=== PATIENT | male | born 1950 | race Caucasian/White ===

== ENCOUNTER 2016-11-17 11:44 | Outpatient (CLI) | payer MEDICARE ==
[~2016-11-17 11:44] MED LIST: NACL ONE
--- NOTE | 2016-11-17 13:21 | Ultrasound Report ---
ULTRASOUND RENAL INDICATION: Renal mass. COMPARISON: 04/15/2016 ultrasound and April 2015 MRI. FINDINGS: Renal sonography demonstrates normal renal cortical echogenicity. Grossly preserved contours. No hydronephrosis. Echogenic imaged liver. Right kidney measures 10.6 x 4.3 x 4.5 cm with cortical thickness of 1.3 cm. AP renal pelvis diameter of 8-9 mm may again represent a small extrarenal pelvis. Left kidney estimated at 10.6 x 5.3 x 4.8 cm with cortical thickness of 1.5 cm. Urinary bladder appears within normal limits. CONCLUSION: No acute renal sonographic abnormality, as described. Two small sub-centimeter left renal cysts seen on prior MRI not well-visualized sonographically. Thank you for the opportunity to participate in this patient's care.
== END 2016-11-17 11:45 | disposition home or self-care (01) ==
LOC: US 11:44
PROVIDERS: ATTEND Urology
DX: N20.0 Calculus of kidney (principal); N28.1 Cyst of kidney, acquired; N28.89 Other specified disorders of kidney and ureter
CPT/HCPCS: 76770

== ENCOUNTER 2017-05-25 15:49 | Outpatient (CLI) | payer MEDICARE ==
--- NOTE | 2017-05-25 16:44 | XRay Report ---
ROUTINE CHEST, TWO VIEWS: Chest pain, dizziness. PA and lateral views demonstrate the heart and mediastinal contour to be of normal size and shape. The lungs are clear and fully expanded and the soft tissues and bony structures are normal. No significant change compared to December 2014. IMPRESSION: Normal study.
== END 2017-05-25 15:50 | disposition home or self-care (01) ==
LOC: CARD 15:49
PROVIDERS: ATTEND Family Medicine
DX: R07.9 Chest pain, unspecified (principal); R42 Dizziness and giddiness
CPT/HCPCS: 71020; 93005; 93010

== ENCOUNTER 2017-11-17 19:46 | Emergency (ER) | payer MEDICARE ==
[2017-11-17 20:50] VITALS: BP 130/64
--- NOTE | 2017-11-18 00:28 | Emergency Department Report ---
ED Rash HPI - HPI Chief Complaint: Skin Rash Stated Complaint: RASH Time Seen by Provider: 11/18/17 00:10 Duration: 1 Day Location: Head, Upper Extremities, Lower Extremities Suspected Cause: Food Rash Symptoms: Yes Itching, No Facial Swelling, No Tongue/Oral Swelling, No Breathing Difficulties, No Choking Sensation, No Wheezing/Dyspnea, No Peeling, No Blistering, No Fever, No Lightheaded, No Malaise, No Myalgias Severity: moderate Other History: This is a 66-year-old male Presents with a generalized pruritic rash. Patient reports eating dinner last night from a rollover a chicken salad sandwich and felt fine initially but woke up with a terrible rash. Patient started using old complaining from a rash he had 2 months ago. Patient reports rash is intolerable and each is worse at night. He took one Claritin and half of Benadryl once with no improvement of symptoms. Denies difficulty swallowing, swelling, difficulty breathing, chest pain, shortness of breath, and tonsil swelling. ED Review of Systems ROS: Stated complaint: RASH Other details as noted in HPI Constitutional: denies: chills, fever Respiratory: denies: cough, shortness of breath, wheezing Cardiovascular: denies: chest pain, palpitations Gastrointestinal: denies: abdominal pain, nausea, vomiting, diarrhea Musculoskeletal: denies: back pain, joint swelling, arthralgia Skin: rash (pure reticulocyte rash to hay, bilateral upper extremity, bilateral lower extremity). denies: lesions Neurological: denies: headache, weakness, numbness, paresthesias Psychiatric: denies: anxiety, depression ED Past Medical Hx - Past Medical History Previous Medical History?: Yes Hx Diabetes: Yes Hx Kidney Stones: Yes Additional medical history: CAD - Surgical History Past Surgical History?: Yes Additional Surgical History: right arm and ear surgery. - Social History Smoking Status: Never Smoker Substance Use Type: None - Medications Home Medications: Home Medications Medication Instructions Recorded Confirmed Last Taken Type Meloxicam [Mobic] 7.5 mg PO QDAY 06/17/15 08/12/15 06/16/15 History Omeprazole [PriLOSEC] 40 mg PO QDAY 06/17/15 08/12/15 06/16/15 History Ondansetron [Zofran Odt] 4 mg PO QID PRN #20 tab.rapdis 06/17/15 08/12/15 Unknown Rx Tramadol HCl [traMADol ER 100 MG] 100 mg PO QDAY 06/17/15 08/12/15 06/16/15 History sitaGLIPtin [Januvia] 50 mg PO QDDIAB 06/17/15 08/12/15 06/16/15 History Atorvastatin Calcium [Lipitor] 40 mg PO QHS 08/12/15 08/13/15 Unknown History Diclofenac Sodium [Voltaren] 100 gm TP DAILY 08/12/15 08/12/15 Unknown History Finasteride [Proscar] 5 mg PO QDAY 08/12/15 08/13/15 Unknown History Glimepiride [Amaryl] 2 mg PO QAM 08/12/15 08/13/15 Unknown History Mirabegron [Myrbetriq] 50 mg PO QDAY 08/12/15 08/13/15 Unknown History Sitagliptin Phosphate [Januvia] 50 mg PO QDAY 08/12/15 08/13/15 Unknown History RX: AtorvaSTATin [Lipitor] 40 mg PO DAILY #31 tablet 08/13/15 Unknown Rx RX: Cipro/Dexameth 0.3/0.1% 4 drops OT BID #1 bottle 08/13/15 Unknown Rx [Ciprodex OTIC] RX: Glimepiride [Amaryl] 2 mg PO QAM #31 tablet 08/13/15 Unknown Rx RX: HYDROcodone/APAP 7.5-325 1 each PO Q8HR PRN #12 tablet 08/13/15 Unknown Rx [[place] 7.5-325 mg TAB] RX: Olopatadine HCl [Pataday 0.2%] 1 drop OP QDAY #1 bottle 08/13/15 Unknown Rx RX: Triamcinolone 0.5% [Kenalog 1 applic TP TID #60 mg 11/18/17 Unknown Rx 0.5% CREAM] hydrOXYzine PAMOATE [Vistaril] 25 mg PO Q6HR PRN #20 capsule 11/18/17 Unknown Rx Rash Exam - Exam General: Vital signs noted. No distress. Alert and acting appropriately. HEENT: No Periorbital Edema, No Conjuctival Injection, No Chemosis, No Perioral Edema, No Tongue Edema, No Uvular Edema, No Compromised Airway, No Drooling Lungs: Yes Good Air Exchange (Normal Breath Sounds), No Wheezes, No Ronchi, No Stridor, No Cough, No Labored Respirations, No Retractions, No Use of Accessory Muscles, No Other Abnormal Lung Sounds Heart: Yes Regular, No Murmur Skin: Yes Maculopapular Rash (multiple 1-2 cm maculopapular erythematous rash to occipital scalp, BUE, BLE), No Urticarial Rash, No Morbilliform rash, No Bulla(e), No Excoriations, No Weeping, No Tenderness, No Erythema, No Edema, No Encrustations, No Other Other: Positive: Abdomen Normal, Neurologic Normal, Musculoskeletal Normal ED Course Vital Signs 11/17/17 20:48 Temperature 98.1 F Pulse Rate 64 Respiratory 16 Rate Blood Pressure 130/64 O2 Sat by Pulse 95 Oximetry ED Medical Decision Making - Medical Decision Making This is a 66 y.o. male presents with a generalized rash. Patient was examined by me. Vitals are stable. Nontoxic appearance. Physical findings susceptible of allergic contact dermatitis. Given dexamethasone 8 mg IM, Vistaril 25 mg by mouth once in the ER. History of DM2. Informed glucose may elevate slightly from steroid injection. Requests to receive steroid injection. Start kenalog cream and visteril. Plan discussed with patient to discharge home and treat outpatient. He agrees with ER plan. Patient discharged home in stable condition. Follow up with PCP in 2-3 days. Critical care attestation.: If time is entered above; I have spent that time in minutes in the direct care of this critically ill patient, excluding procedure time. ED Disposition Clinical Impression: Allergic contact dermatitis Qualifiers: Contact dermatitis trigger: unspecified trigger Qualified Code(s): L23.9 - Allergic contact dermatitis, unspecified cause Disposition: DC-01 TO HOME OR SELFCARE Is pt being admited?: No Does the pt Need Aspirin: No Condition: Stable Instructions: Contact Dermatitis (ED) Additional Instructions: Apply a thin layer of triamcinolone cream to affected areas twice a day. Take Vistaril for itching. Follow-up with primary care provider in 2-3 days. Prescriptions: hydrOXYzine PAMOATE [Vistaril] 25 mg PO Q6HR PRN #20 capsule PRN Reason: Itching RX: Triamcinolone 0.5% [Kenalog 0.5% CREAM] 1 applic TP TID #60 mg Referrals: [facility] [Outside] - 3-5 Days [facility] [Outside] - 3-5 Days [facility] [Outside] - 3-5 Days Time of Disposition: 01:24 Print Language: TELUGU
[2017-11-18] MEDS ORDERED: VISTARIL PO ONE (00:29)
[2017-11-18] MEDS ORDERED: DECADRON IM ONE (00:29)
== END 2017-11-18 01:50 | disposition home or self-care (01) ==
LOC: ED 19:46
DX: L23.9 Allergic contact dermatitis, unspecified cause (principal); E11.9 Type 2 diabetes mellitus without complications; I25.10 Atherosclerotic heart disease of native coronary artery without angina pectoris; Z79.899 Other long term (current) drug therapy; Z88.1 Allergy status to other antibiotic agents; Z87.442 Personal history of urinary calculi
CPT/HCPCS: 96372; 99282; J1100; Q0177

== ENCOUNTER 2018-04-21 13:08 | Outpatient (CLI) | payer MEDICARE ==
[2018-04-21 14:13] LABS: Blood Urea Nitrogen 15 mg/dL (9-20)
--- NOTE | 2018-04-21 17:22 | Cat Scan Report ---
FINAL REPORT EXAM: CT ABDOMEN PELVIS WO/W CON HISTORY: OTHER MICROSCOPIC Hematuria, UROGRAM WITHOUT CONTRAST TECHNIQUE: Standard unenhanced followed by enhanced CT of the abdomen and pelvis. Coronal and sagittal reconstruction was also performed. Contrast: Intravenous contrast given PRIORS: None. FINDINGS: On the unenhanced exam, there is a 4 mm nonobstructing calculus in the proximal right ureter just beyond the ureteropelvic junction (axial image 73, series 2). On the enhanced images, contrast is noted beyond this calculus in the distal right ureter. There is no evidence for renal calculi. No evidence for left ureteral or bladder calculus is seen. No evidence for renal or bladder mass is noted. There is a 1 cm low-density cyst in the lateral mid pole left kidney. Kidney smaller adjacent cyst seen in the upper left pole. Following contrast, within the abdomen, the liver, spleen, pancreas, gallbladder, right adrenal gland, and kidneys are unremarkable. There is a 9 mm low-density nodule in the left adrenal gland, likely an adenoma. No evidence for retroperitoneal or pelvic lymphadenopathy is seen. The bowel loops have normal caliber. Moderate stool is present throughout the entire colon. No fluid collection, inflammatory change, or free air is seen within the abdomen or pelvis. The appendix is normal. Moderate calcification of the aorta is seen. Within the pelvis, the bladder is unremarkable. The prostate is mildly enlarged. No evidence for mass or lymphadenopathy is seen in the pelvis. Images through the upper abdomen include the lung bases which are expanded and clear. Bony structures show no focal abnormalities and are intact. IMPRESSION: 1. Nonobstructing calculus in the proximal right ureter. Excreted intravenous contrast is noted beyond this point in the distal right ureter 2. Multiple tiny hypodensities in left kidney, likely cysts. 3. Nodule in left adrenal gland, likely an adenoma 4. Mild prostate enlargement 5. Present throughout the colon.
== END 2018-04-21 13:09 | disposition home or self-care (01) ==
LOC: CT 13:08
PROVIDERS: ATTEND Urology
DX: N20.1 Calculus of ureter (principal); E27.9 Disorder of adrenal gland, unspecified; N40.0 Benign prostatic hyperplasia without lower urinary tract symptoms; J44.9 Chronic obstructive pulmonary disease, unspecified; E66.9 Obesity, unspecified; I10 Essential (primary) hypertension; Z87.891 Personal history of nicotine dependence
CPT/HCPCS: 36415; 74178; 82565; 84520; Q9967

== ENCOUNTER 2018-08-11 12:58 | Emergency (ER) | payer MEDICARE ==
[2018-08-11 13:09] VITALS: BP 101/67
--- NOTE | 2018-08-11 14:07 | Emergency Department Report ---
ED Rash HPI - HPI Chief Complaint: Skin Rash Stated Complaint: RASH ALL OVER Time Seen by Provider: 08/11/18 13:23 Duration: as per HPI Suspected Cause: Other (soap) Rash Symptoms: Yes Itching, No Facial Swelling, No Tongue/Oral Swelling, No Breathing Difficulties, No Choking Sensation, No Wheezing/Dyspnea, No Peeling, No Blistering, No Fever Severity: mild Other History: Mr. Baig is a 67 yo male with hx of diabetes, kidney stone, CAD, chronic pain, dysplipidemia, recurrent ear infections who presents with itchy dry skin and rash for 3 months. Had diffuse redness all over which improved with "shot" given in ED on previous ED visit. PCP diagnosed patient with Xerosis due to soap. Prednisone helps but causes his sugar level to shoot up. Mr. Baig desires antibiotic for left ear pain, namely ciprofloxacin. He has had 2 ear surgeries which has complicated chronic ear infections. ED Review of Systems ROS: Stated complaint: RASH ALL OVER Other details as noted in HPI Comment: All other systems reviewed and negative Constitutional: denies: fever, malaise Respiratory: denies: cough Gastrointestinal: denies: abdominal pain ED Past Medical Hx - Past Medical History Previous Medical History?: Yes Hx Diabetes: Yes Hx Kidney Stones: Yes Additional medical history: CAD. chronic pain. elevated cholestrol - Surgical History Past Surgical History?: Yes Additional Surgical History: right arm and ear surgery. - Social History Smoking Status: Never Smoker Substance Use Type: None - Medications Home Medications: Home Medications Medication Instructions Recorded Confirmed Last Taken Type Meloxicam [Mobic] 7.5 mg PO QDAY 06/17/15 08/12/15 06/16/15 History Omeprazole [PriLOSEC] 40 mg PO QDAY 06/17/15 08/12/15 06/16/15 History sitaGLIPtin [Januvia] 50 mg PO QDDIAB 06/17/15 08/12/15 06/16/15 History Atorvastatin Calcium [Lipitor] 40 mg PO QHS 08/12/15 08/13/15 Unknown History Diclofenac Sodium [Voltaren] 100 gm TP DAILY 08/12/15 08/12/15 Unknown History Finasteride [Proscar] 5 mg PO QDAY 08/12/15 08/13/15 Unknown History Glimepiride [Amaryl] 2 mg PO QAM 08/12/15 08/13/15 Unknown History Mirabegron [Myrbetriq] 50 mg PO QDAY 08/12/15 08/13/15 Unknown History Sitagliptin Phosphate [Januvia] 50 mg PO QDAY 08/12/15 08/13/15 Unknown History Glimepiride [Amaryl] 2 mg PO QAM #31 tablet 08/13/15 Unknown Rx Olopatadine HCl [Pataday 0.2%] 1 drop OP QDAY #1 bottle 08/13/15 Unknown Rx predniSONE [Deltasone] 20 mg PO DAILY #5 tablet 07/12/18 Unknown Rx Ciprofloxacin/Hydrocortisone 3 drop OT BID 7 Days #1 bottle 08/11/18 Unknown Rx [Ciprofloxacin HC OTIC] diphenhydrAMINE [Benadryl CAP] 25 mg PO Q6HR PRN #20 capsule 08/11/18 Unknown Rx Rash Exam - Exam General: Vital signs noted. No distress. Alert and acting appropriately. left ear: scarred TM HEENT: No Periorbital Edema, No Conjuctival Injection, No Chemosis, No Perioral Edema, No Tongue Edema, No Uvular Edema, No Compromised Airway, No Drooling Lungs: Yes Good Air Exchange (Normal Breath Sounds), No Wheezes, No Ronchi, No Stridor, No Cough, No Labored Respirations, No Retractions, No Use of Accessory Muscles, No Other Abnormal Lung Sounds Heart: Yes Regular, No Murmur Skin: No Other (dry skin no lesions) Other: Positive: Abdomen Normal, Neurologic Normal, Musculoskeletal Normal ED Course Vital Signs 08/11/18 13:05 Temperature 99.0 F Pulse Rate 80 Respiratory 16 Rate Blood Pressure 101/67 O2 Sat by Pulse 99 Oximetry ED Medical Decision Making - Medical Decision Making I agree with diagnosis of Xerosis. Has been treated with prednisone, loratadine, multiple topical medications per PCP. 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 left ear pain: ciprofloxacin otic drops prescribed according to his wishes rx: benadryl for itching Critical care attestation.: If time is entered above; I have spent that time in minutes in the direct care of this critically ill patient, excluding procedure time. ED Disposition Clinical Impression: Xerosis of skin, Earache on left Disposition: DC- TO HOME OR SELFCARE Is pt being admited?: No Does the pt Need Aspirin: No Condition: Stable Instructions: Earache (ED) Prescriptions: Ciprofloxacin/Hydrocortisone [Ciprofloxacin HC OTIC] 3 drop OT BID 7 Days #1 bottle diphenhydrAMINE [Benadryl CAP] 25 mg PO Q6HR PRN #20 capsule PRN Reason: Itching Referrals: PRIMARY CARE, [Referring] - 3-5 Days
[2018-08-11] MEDS ORDERED: BENADRYL IM ONE (14:15)
== END 2018-08-11 15:01 | disposition home or self-care (01) ==
LOC: ED 12:58
DX: L85.3 Xerosis cutis (principal); H92.01 Otalgia, right ear; E78.2 Mixed hyperlipidemia; N20.0 Calculus of kidney; E11.9 Type 2 diabetes mellitus without complications; G89.29 Other chronic pain; Z88.1 Allergy status to other antibiotic agents
CPT/HCPCS: 82962; 96372; 99283; J1200

== ENCOUNTER 2018-08-11 15:28 | Outpatient (CLI) | payer MEDICARE ==
--- NOTE | 2018-08-11 17:36 | XRay Report ---
FINAL REPORT EXAM: XR ABDOMEN 1V AP HISTORY: CALCULUS OF KIDNEY TECHNIQUE: KUB was performed Comparison: CT abdomen and pelvis 04/21/2018 demonstrating proximal right ureteral stone, nonobstruct kody FINDINGS: There is diffuse fecal retention, specially overlying the right abdomen. There are 2 right pelvic phleboliths and 2 additional pelvic brim phleboliths. No definite calculus is identified along the expected course of the right ureter. No renal calculi identified. IMPRESSION: Diffuse fecal retention. No definite renal or ureteral calculus.
== END 2018-08-11 15:29 | disposition home or self-care (01) ==
LOC: XRAY 15:28
PROVIDERS: ATTEND Urology
DX: K59.00 Constipation, unspecified (principal); I87.8 Other specified disorders of veins
CPT/HCPCS: 74018

== ENCOUNTER 2018-08-20 12:29 | Emergency (ER) | payer MEDICARE ==
[2018-08-20 12:56] VITALS: BP 109/70
[2018-08-20] MEDS ORDERED: SOLU-Medrol IM ONE (13:17)
[2018-08-20] MEDS ORDERED: BENADRYL IM ONE (13:17)
[2018-08-20 14:04] LABS: Bilirubin,Urine NEG (Negative); Blood,Urine NEG (Negative); Color,Urine Yellow (Yellow); Protein,Urine <15 mg/dL mg/dL (Negative); Urobilinogen,Urine < 2.0 mg/dL (<2.0); WBC,Urine < 1.0 /HPF (0.0-6.0)
--- NOTE | 2018-08-20 14:41 | Emergency Department Report ---
- General Chief complaint: Skin Rash Stated complaint: SWELLING Time Seen by Provider: 08/20/18 13:15 Source: patient Mode of arrival: Ambulatory Limitations: No Limitations - History of Present Illness Initial comments: 67-year-old male with a past medical history of kra-[id number] diabetes, kidney stones, chronic pain, and elevated cholesterol presents to the hospital once again complaining of a rash. Patient states he used a new [id number] hair dye for his mustache. He then developed swelling to his upper lip and his eyes since yesterday. Upon arrival symptoms have improved. Patient is also using a betamethasone and triamcinolone topical treatment for his ongoing chronic itching erythematous rash to scalp. He states that they help but causes sugar to be elevated to the 200s but states it comes down after taking his diabetes medication. Patient denies shortness of breath, wheezing, or tongue swelling. He is requesting a "strong medication" to help his symptoms. He also states he's had increased urinary frequency and like his urine checked. - Related Data Home Medications Medication Instructions Recorded Confirmed Last Taken Meloxicam [Mobic] 7.5 mg PO QDAY 06/17/15 08/12/15 06/16/15 Omeprazole [PriLOSEC] 40 mg PO QDAY 06/17/15 08/12/15 06/16/15 sitaGLIPtin [Januvia] 50 mg PO QDDIAB 06/17/15 08/12/15 06/16/15 Atorvastatin Calcium [Lipitor] 40 mg PO QHS 08/12/15 08/13/15 Unknown Diclofenac Sodium [Voltaren] 100 gm TP DAILY 08/12/15 08/12/15 Unknown Finasteride [Proscar] 5 mg PO QDAY 08/12/15 08/13/15 Unknown Glimepiride [Amaryl] 2 mg PO QAM 08/12/15 08/13/15 Unknown Mirabegron [Myrbetriq] 50 mg PO QDAY 08/12/15 08/13/15 Unknown Sitagliptin Phosphate [Januvia] 50 mg PO QDAY 08/12/15 08/13/15 Unknown Previous Rx's Medication Instructions Recorded Last Taken Type Glimepiride [Amaryl] 2 mg PO QAM #31 tablet 08/13/15 Unknown Rx Olopatadine HCl [Pataday 0.2%] 1 drop OP QDAY #1 bottle 08/13/15 Unknown Rx predniSONE [Deltasone] 20 mg PO DAILY #5 tablet 07/12/18 Unknown Rx Azithromycin 250 mg PO DAILY 5 Days #6 tablet 08/11/18 Unknown Rx Ciprofloxacin/Hydrocortisone 3 drop OT BID 7 Days #1 bottle 08/11/18 Unknown Rx [Ciprofloxacin HC OTIC] diphenhydrAMINE [Benadryl CAP] 25 mg PO Q6HR PRN #20 capsule 08/11/18 Unknown Rx predniSONE [Deltasone] 1 tab PO DAILY 5 Days #5 tab 08/11/18 Unknown Rx Prednisone [predniSONE 10 mg 10 mg PO .TAPER #1 tab.ds.pk 08/20/18 Unknown Rx (6-Day Pack, 21 Tabs)] diphenhydrAMINE [Benadryl CAP] 25 mg PO Q6HR PRN #20 capsule 08/20/18 Unknown Rx Allergies Allergy/AdvReac Type Severity Reaction Status Date / Time amoxicillin Allergy Unknown Verified 11/17/17 20:48 Abscess Boil HPI - HPI Chief Complaint: Skin Rash Stated Complaint: SWELLING Time Seen by Provider: 08/20/18 13:15 Home Medications: Home Medications Medication Instructions Recorded Confirmed Last Taken Meloxicam [Mobic] 7.5 mg PO QDAY 06/17/15 08/12/15 06/16/15 Omeprazole [PriLOSEC] 40 mg PO QDAY 06/17/15 08/12/15 06/16/15 sitaGLIPtin [Januvia] 50 mg PO QDDIAB 06/17/15 08/12/15 06/16/15 Atorvastatin Calcium [Lipitor] 40 mg PO QHS 08/12/15 08/13/15 Unknown Diclofenac Sodium [Voltaren] 100 gm TP DAILY 08/12/15 08/12/15 Unknown Finasteride [Proscar] 5 mg PO QDAY 08/12/15 08/13/15 Unknown Glimepiride [Amaryl] 2 mg PO QAM 08/12/15 08/13/15 Unknown Mirabegron [Myrbetriq] 50 mg PO QDAY 08/12/15 08/13/15 Unknown Sitagliptin Phosphate [Januvia] 50 mg PO QDAY 08/12/15 08/13/15 Unknown Previous Rx's Medication Instructions Recorded Last Taken Type Glimepiride [Amaryl] 2 mg PO QAM #31 tablet 08/13/15 Unknown Rx Olopatadine HCl [Pataday 0.2%] 1 drop OP QDAY #1 bottle 08/13/15 Unknown Rx predniSONE [Deltasone] 20 mg PO DAILY #5 tablet 07/12/18 Unknown Rx Azithromycin 250 mg PO DAILY 5 Days #6 tablet 08/11/18 Unknown Rx Ciprofloxacin/Hydrocortisone 3 drop OT BID 7 Days #1 bottle 08/11/18 Unknown Rx [Ciprofloxacin HC OTIC] diphenhydrAMINE [Benadryl CAP] 25 mg PO Q6HR PRN #20 capsule 08/11/18 Unknown Rx predniSONE [Deltasone] 1 tab PO DAILY 5 Days #5 tab 08/11/18 Unknown Rx Prednisone [predniSONE 10 mg 10 mg PO .TAPER #1 tab.ds.pk 08/20/18 Unknown Rx (6-Day Pack, 21 Tabs)] diphenhydrAMINE [Benadryl CAP] 25 mg PO Q6HR PRN #20 capsule 08/20/18 Unknown Rx Allergies/Adverse Reactions: Allergies Allergy/AdvReac Type Severity Reaction Status Date / Time amoxicillin Allergy Unknown Verified 11/17/17 20:48 ED Review of Systems ROS: Stated complaint: SWELLING Other details as noted in HPI Comment: All other systems reviewed and negative ED Past Medical Hx - Past Medical History Previous Medical History?: Yes Hx Diabetes: Yes Hx Kidney Stones: Yes Additional medical history: chronic pain. elevated cholestrol - Surgical History Past Surgical History?: Yes Additional Surgical History: right arm and ear surgery. - Social History Smoking Status: Never Smoker Substance Use Type: None - Medications Home Medications: Home Medications Medication Instructions Recorded Confirmed Last Taken Type Meloxicam [Mobic] 7.5 mg PO QDAY 06/17/15 08/12/15 06/16/15 History Omeprazole [PriLOSEC] 40 mg PO QDAY 06/17/15 08/12/15 06/16/15 History sitaGLIPtin [Januvia] 50 mg PO QDDIAB 06/17/15 08/12/15 06/16/15 History Atorvastatin Calcium [Lipitor] 40 mg PO QHS 08/12/15 08/13/15 Unknown History Diclofenac Sodium [Voltaren] 100 gm TP DAILY 08/12/15 08/12/15 Unknown History Finasteride [Proscar] 5 mg PO QDAY 08/12/15 08/13/15 Unknown History Glimepiride [Amaryl] 2 mg PO QAM 08/12/15 08/13/15 Unknown History Mirabegron [Myrbetriq] 50 mg PO QDAY 08/12/15 08/13/15 Unknown History Sitagliptin Phosphate [Januvia] 50 mg PO QDAY 08/12/15 08/13/15 Unknown History Glimepiride [Amaryl] 2 mg PO QAM #31 tablet 08/13/15 Unknown Rx Olopatadine HCl [Pataday 0.2%] 1 drop OP QDAY #1 bottle 08/13/15 Unknown Rx predniSONE [Deltasone] 20 mg PO DAILY #5 tablet 07/12/18 Unknown Rx Azithromycin 250 mg PO DAILY 5 Days #6 tablet 08/11/18 Unknown Rx Ciprofloxacin/Hydrocortisone 3 drop OT BID 7 Days #1 bottle 08/11/18 Unknown Rx [Ciprofloxacin HC OTIC] diphenhydrAMINE [Benadryl CAP] 25 mg PO Q6HR PRN #20 capsule 08/11/18 Unknown Rx predniSONE [Deltasone] 1 tab PO DAILY 5 Days #5 tab 08/11/18 Unknown Rx Prednisone [predniSONE 10 mg 10 mg PO .TAPER #1 tab.ds.pk 08/20/18 Unknown Rx (6-Day Pack, 21 Tabs)] diphenhydrAMINE [Benadryl CAP] 25 mg PO Q6HR PRN #20 capsule 08/20/18 Unknown R x ED Physical Exam - General Limitations: No Limitations - Other Other exam information: General: No limitations, patient is alert in no acute distress Head exam: Atraumatic, normocephalic Eyes exam: Normal appearance, pupils equal reactive to light, extraocular movements intact. Minimal periorbital swelling ENT: Moist mucous membrane, minimal swelling noted to the upper lip Neck exam: Normal inspection, full range of motion, no meningismus nontender Respiratory exam: Clear to auscultation bilateral, no wheezes, rales, crackles Cardiovascular: Normal rate and rhythm, normal heart sounds Abdomen: Soft, nondistended, and nontender, with normal bowel sounds, no rebound, or guarding Extremity: Full range of motion normal inspection no deformity Back: Normal Inspection, full range of motion, no tenderness Neurologic: Alert, oriented x3, cranial nerves intact, no motor or sensory deficit Psychiatric: normal affect, normal mood Skin: Erythematous pruritic rash to lateral scalp bilaterally. ED Course Vital Signs 08/20/18 12:42 Temperature 98 F Pulse Rate 83 Respiratory 18 Rate Blood Pressure 109/70 O2 Sat by Pulse 99 Oximetry - Reevaluation(s) Reevaluation #1: 08/20/18 14:39 Patient received a shot of Solu-Medrol and Benadryl ED Medical Decision Making - Medical Decision Making Patient encouraged to follow-up urology for ongoing urinary problems and dermatology for ongoing skin problems. Steroids will marcia prescribed due to facial swelling result of hair dye use. Patient was warned of increase glucose when he uses steroids. - Differential Diagnosis allergic reaction, UTI Critical Care Time: No Critical care attestation.: If time is entered above; I have spent that time in minutes in the direct care of this critically ill patient, excluding procedure time. ED Disposition Clinical Impression: Xerosis of skin, Allergic reaction to dye Disposition: DC-01 TO HOME OR SELFCARE Is pt being admited?: No Does the pt Need Aspirin: No Condition: Stable Instructions: Allergies (ED) Additional Instructions: Take the medication as prescribed. Follow up with your doctor or the doctor/clinic provided. Also follow up with the specialist provided. Return if symptoms worsen as indicated by your discharge instructions. Do not use that hair dye any more. Prescriptions: diphenhydrAMINE [Benadryl CAP] 25 mg PO Q6HR PRN #20 capsule PRN Reason: Allergy Symptoms Prednisone [predniSONE 10 mg (6-Day Pack, 21 Tabs)] 10 mg PO .TAPER #1 tab.ds.pk Referrals: KEYON GONSALVES MD [Staff Physician] - 3-5 Days (Urologist) [facility] [Provider Group] - 3-5 Days (Primary care clinic) ALINA ALVAREZ MD [Primary Care Provider] - 3-5 Days (Primary care doctor) Dashawn Weiss [Other] - 3-5 Days (Scrap Crusher) Cain Carrera [Other] - 3-5 Days (Scrap Crusher) Time of Disposition: 14:46
== END 2018-08-20 14:48 | disposition home or self-care (01) ==
LOC: ED 12:29
DX: L85.3 Xerosis cutis (principal); E11.9 Type 2 diabetes mellitus without complications; E78.00 Pure hypercholesterolemia, unspecified; Z87.442 Personal history of urinary calculi; Z88.1 Allergy status to other antibiotic agents
CPT/HCPCS: 81001; 96372; 99283; J1200; J2930

== ENCOUNTER 2018-09-20 15:07 | Outpatient (CLI) | payer MEDICARE ==
--- NOTE | 2018-09-20 23:40 | Ultrasound Report ---
PROCEDURE: US RENAL BILAT TECHNIQUE: Real-time sonography in multiple planes of the kidneys, ureters and urinary bladder was p erformed with image documentation. HISTORY: CALCULUS OF KIDNEY COMPARISONS: None . FINDINGS: RIGHT kidney: Normal echotexture. No focal renal mass, calculus, or hydronephrosis. Length: 10.2 cm . LEFT kidney: Normal echotexture. No focal renal mass, calculus, or hydronephrosis. Length: 10.6 cm. Bladder: Normal. No distention or wall thickening. IMPRESSION: Normal Examination . This document is electronically signed by Radha Evans DO., September 20 2018 11:38:19 PM ET
== END 2018-09-20 15:08 | disposition home or self-care (01) ==
LOC: US 15:07
PROVIDERS: ATTEND Urology
DX: N20.0 Calculus of kidney (principal)
CPT/HCPCS: 76770

== ENCOUNTER 2018-12-02 15:00 | Emergency (ER) | payer MEDICARE ==
--- NOTE | 2018-12-02 15:36 | Emergency Department Report ---
Suture/Staple Removal - [facility] Wound Location: pt had a laceration repair of the right 4th finger on 11/23, suture removal <MICHAEL PAREDES - Last Filed: 12/02/18 15:36> <IRVIN YEH - Last Filed: 12/02/18 16:21> - HPI Chief Complaint: Laceration/Recheck/Suture Stated Complaint: REMOVE SUTURES Time Seen by Provider: 12/02/18 15:35 ED Review of Systems ROS: Stated complaint: REMOVE SUTURES Other details as noted in HPI Comment: All other systems reviewed and negative <MICHAEL PAREDES - Last Filed: 12/02/18 15:36> ROS: Stated complaint: REMOVE SUTURES Other details as noted in HPI <IRVIN YEH - Last Filed: 12/02/18 16:21> ED Past Medical Hx - Past Medical History Hx Diabetes: Yes Hx Kidney Stones: Yes Additional medical history: chronic pain. elevated cholestrol - Surgical History Additional Surgical History: right arm and ear surgery. - Social History Smoking Status: Never Smoker Substance Use Type: None <MICHAEL PAREDES - Last Filed: 12/02/18 15:36> <IRVIN YEH - Last Filed: 12/02/18 16:21> - Medications Home Medications: Home Medications Medication Instructions Recorded Confirmed Last Taken Type Meloxicam [Mobic] 7.5 mg PO QDAY 06/17/15 08/12/15 06/16/15 History Omeprazole [PriLOSEC] 40 mg PO QDAY 06/17/15 08/12/15 06/16/15 History sitaGLIPtin [Januvia] 50 mg PO QDDIAB 06/17/15 08/12/15 06/16/15 History Atorvastatin Calcium [Lipitor] 40 mg PO QHS 08/12/15 08/13/15 Unknown History Diclofenac Sodium [Voltaren] 100 gm TP DAILY 08/12/15 08/12/15 Unknown History Finasteride [Proscar] 5 mg PO QDAY 08/12/15 08/13/15 Unknown History Glimepiride [Amaryl] 2 mg PO QAM 08/12/15 08/13/15 Unknown History Mirabegron [Myrbetriq] 50 mg PO QDAY 02/01/16 02/02/16 Unknown History Sitagliptin Phosphate [Januvia] 50 mg PO QDAY 08/12/15 08/13/15 Unknown History Glimepiride [Amaryl] 2 mg PO QAM #31 tablet 08/13/15 Unknown Rx Olopatadine HCl [Pataday 0.2%] 1 drop OP QDAY #1 bottle 08/13/15 Unknown Rx predniSONE [Deltasone] 20 mg PO DAILY #5 tablet 07/12/18 Unknown Rx Azithromycin 250 mg PO DAILY 5 Days #6 tablet 08/11/18 Unknown Rx Ciprofloxacin/Hydrocortisone 3 drop OT BID 7 Days #1 bottle 08/11/18 Unknown Rx [Ciprofloxacin HC OTIC] diphenhydrAMINE [Benadryl CAP] 25 mg PO Q6HR PRN #20 capsule 08/11/18 Unknown Rx predniSONE [Deltasone] 1 tab PO DAILY 5 Days #5 tab 08/11/18 Unknown Rx Prednisone [predniSONE 10 mg 10 mg PO .TAPER #1 tab.ds.pk 08/20/18 Unknown Rx (6-Day Pack, 21 Tabs)] diphenhydrAMINE [Benadryl CAP] 25 mg PO Q6HR PRN #20 capsule 08/20/18 Unknown Rx Ibuprofen [Motrin] 600 mg PO Q8H PRN #15 tablet 11/23/18 Unknown Rx Sulfamethoxazole/Trimethoprim 1 each PO Q12H #20 tablet 11/23/18 Unknown Rx [Bactrim DS TAB] Bacitracin/Polymixin B [Polysporin] 1 applic TP BID #1 tube 12/02/18 Unknown Rx Suture Removal Exam - Exam General: Vital signs noted. No distress. Alert and acting appropriately. Other Systems: All other systems reviewed and are unremarkable. <MICHAEL PAREDES - Last Filed: 12/02/18 15:36> - Exam General: Vital signs noted. No distress. Alert and acting appropriately. Wound: Yes Tenderness (mild), No Pathologic Erythema, No Drainage, No Pus, No Wound Dehiscence Other Systems: All other systems reviewed and are unremarkable. <IRVIN YEH - Last Filed: 12/02/18 16:21> ED Course Vital Signs 12/02/18 15:35 Temperature 97.3 F L Pulse Rate 75 Respiratory 16 Rate Blood Pressure 119/71 [Left] O2 Sat by Pulse 97 Oximetry <IRVIN YEH - Last Filed: 12/02/18 16:21> ED Recheck MDM - Medical Decision Making sutures removed without incident. bacitracin and bandaid applied. <IRVIN YEH - Last Filed: 12/02/18 16:21> Critical care attestation.: If time is entered above; I have spent that time in minutes in the direct care of this critically ill patient, excluding procedure time. <MICHAEL PAREDES - Last Filed: 12/02/18 15:36> Critical care attestation.: If time is entered above; I have spent that time in minutes in the direct care of this critically ill patient, excluding procedure time. <IRVIN YEH - Last Filed: 12/02/18 16:21> ED Disposition <MICHAEL PAREDES - Last Filed: 12/02/18 15:36> Is pt being admited?: No Does the pt Need Aspirin: No Time of Disposition: 16:21 <IRVIN YEH - Last Filed: 12/02/18 16:21> Clinical Impression: Visit for suture removal Disposition: TO HOME OR SELFCARE Condition: Stable Instructions: Suture Removal (ED) Additional Instructions: Take the medication as prescribed. Follow up with your doctor or the clinic/doctor provided. Return if symptoms worsen as indicated by your discharge instructions Prescriptions: Bacitracin/Polymixin B [Polysporin] 1 applic TP BID #1 tube Referrals: PRIMARY CARE, [Referring] - 3-5 Days [facility] [Provider Group] - 3-5 Days
[2018-12-02 15:37] VITALS: BP 119/71
[2018-12-02] MEDS ORDERED: IBUPROFEN PO ONE (16:15)
[2018-12-02] MEDS ORDERED: TRIPLE ANTIBIOTIC TP ONE (16:23)
[2018-12-02] MEDS ORDERED: POLYSPORIN TP ONE (17:15)
== END 2018-12-02 16:29 | disposition home or self-care (01) ==
LOC: ED 15:00
DX: S61.214D Laceration without foreign body of right ring finger without damage to nail, subsequent encounter (principal); Y92.89 Other specified places as the place of occurrence of the external cause
CPT/HCPCS: 99282; A6250

== ENCOUNTER 2019-01-16 10:11 | Observation (INO) | payer MEDICARE ==
[2019-01-16 11:25] LABS: Basophils % (Auto) 1.5 % (0.0-1.8); Eosinophils # (Auto) 0.1 K/mm3 (0.0-0.4); Eosinophils % (Auto) 3.6 % (0.0-4.3); Hematocrit 37.5 % (35.5-45.6); Hemoglobin 12.2 gm/dl (11.8-15.2); Lymphocytes % (Auto) 28.4 % (13.4-35.0); Mean Corpuscular HGB Conc 33 % (32-34); Mean Corpuscular Volume 85 fl (84-94); Monocytes # (Auto) 0.3 K/mm3 (0.0-0.8); Monocytes % (Auto) 9.9 % (0.0-7.3); Platelet Count 239 K/mm3 (140-440); Red Cell Distribution Width 14.5 % (13.2-15.2)
--- NOTE | 2019-01-16 11:31 | Emergency Department Report ---
ED Chest Pain HPI - General Chief Complaint: Chest Pain Stated Complaint: CHEST PAIN Time Seen by Provider: 01/16/19 11:03 Source: patient Mode of arrival: Ambulatory Limitations: No Limitations - History of Present Illness Initial Comments: 68-year-old male presents to the emergency department with a complaint of some left-sided chest pain with radiation towards the neck and back that has been going on intermittently since last night. It is a sharp pain. No obvious aggravating or alleviating factors. He denies any shortness of breath, fever, nausea, vomiting or diaphoresis. He has a past medical history of diabetes, high cholesterol, kidney stones, and some right arm chronic pain. He has a primary care physician but has not seen them regarding his symptoms. No recent travel or sick contacts at home. He tried some meloxicam and Benadryl for his symptoms late last night without much relief. Severity scale (0 -10): 10 - Related Data Home Medications Medication Instructions Recorded Confirmed Last Taken Omeprazole [PriLOSEC] 40 mg PO QDAY 06/17/15 01/16/19 06/16/15 Atorvastatin Calcium [Lipitor] 20 mg PO QHS 08/12/15 01/16/19 Unknown Diclofenac Sodium [Voltaren] 1 applic TP BID 08/12/15 01/16/19 Unknown Ciprofloxacin/Hydrocortisone 4 drop OT Q12HR 01/16/19 01/16/19 Unknown [Ciprofloxacin HC OTIC] Glimepiride [Amaryl] 4 mg PO BID 01/16/19 01/16/19 Unknown HYDROcodone/APAP 7.5-325 [[place] 1 each PO Q12HR PRN 01/16/19 01/16/19 Unknown 7.5/325] Loratadine 10 mg PO QDAY 01/16/19 01/16/19 Unknown Meloxicam [Mobic] 15 mg PO QAM 01/16/19 01/16/19 Unknown Olopatadine HCl [Pataday 0.2%] 1 drop OU QDAY 01/16/19 01/16/19 Unknown Sitagliptin Phosphate [Januvia] 100 mg PO QDAY 01/16/19 01/16/19 Unknown Solifenacin Succinate [Vesicare] 10 mg PO QDAY 01/16/19 01/16/19 Unknown Tramadol HCl [traMADol ER 100 MG] 100 mg PO QDAY PRN 01/16/19 01/16/19 Unknown Allergies Allergy/AdvReac Type Severity Reaction Status Date / Time amoxicillin Allergy Unknown Verified 12/02/18 15:02 Heart Score - HEART Score History: Moderately suspicious EKG: Normal Age: > 65 Risk factors: 1-2 risk factors Troponin: < normal limit HEART Score: 4 - Critical Actions Critical Actions: 4-6 pts:12-16.6% risk of adverse cardiac event. Should be admitted ED Review of Systems ROS: Stated complaint: CHEST PAIN Other details as noted in HPI Comment: All other systems reviewed and negative Constitutional: denies: chills, fever Eyes: denies: eye pain, vision change ENT: denies: ear pain, throat pain Respiratory: denies: cough, shortness of breath Cardiovascular: chest pain. denies: palpitations Gastrointestinal: denies: abdominal pain, vomiting Genitourinary: denies: dysuria, discharge Musculoskeletal: back pain. denies: joint swelling Skin: denies: rash, lesions Neurological: denies: headache, weakness ED Past Medical Hx - Past Medical History Previous Medical History?: Yes Hx Diabetes: Yes Hx Kidney Stones: Yes Additional medical history: chronic pain. elevated cholestrol - Surgical History Past Surgical History?: Yes Additional Surgical History: right arm and ear surgery. - Social History Smoking Status: Former Smoker - Medications Home Medications: Home Medications Medication Instructions Recorded Confirmed Last Taken Type Omeprazole [PriLOSEC] 40 mg PO QDAY 06/17/15 01/16/19 06/16/15 History Atorvastatin Calcium [Lipitor] 20 mg PO QHS 08/12/15 01/16/19 Unknown History Diclofenac Sodium [Voltaren] 1 applic TP BID 08/12/15 01/16/19 Unknown History Ciprofloxacin/Hydrocortisone 4 drop OT Q12HR 01/16/19 01/16/19 Unknown History [Ciprofloxacin HC OTIC] Glimepiride [Amaryl] 4 mg PO BID 01/16/19 01/16/19 Unknown History HYDROcodone/APAP 7.5-325 [[place] 1 each PO Q12HR PRN 01/16/19 01/16/19 Unknown History 7.5/325] Loratadine 10 mg PO QDAY 01/16/19 01/16/19 Unknown History Meloxicam [Mobic] 15 mg PO QAM 01/16/19 01/16/19 Unknown History Olopatadine HCl [Pataday 0.2%] 1 drop OU QDAY 01/16/19 01/16/19 Unknown History Sitagliptin Phosphate [Januvia] 100 mg PO QDAY 01/16/19 01/16/19 Unknown History Solifenacin Succinate [Vesicare] 10 mg PO QDAY 01/16/19 01/16/19 Unknown History Tramadol HCl [traMADol ER 100 MG] 100 mg PO QDAY PRN 01/16/19 01/16/19 Unknown History ED Physical Exam - General Limitations: No Limitations - Other Other exam information: GENERAL: The patient is well-developed well-nourished. HENT: Normocephalic. Atraumatic. Patient has moist mucous membranes. EYES: Extraocular motions are intact. Chest pain was not reproducible to palpation of the chest wall. NECK: Supple. Trachea is midline. CHEST/LUNGS: Clear to auscultation. There is no respiratory distress noted. HEART/CARDIOVASCULAR: Regular. There is no tachycardia. There is no murmur. ABDOMEN: Abdomen is soft, nontender. Patient has normal bowel sounds. There is no abdominal distention. SKIN: Skin is warm and dry. NEURO: The patient is awake, alert, and oriented. The patient is cooperative. The patient has no focal neurologic deficits. The patient has normal speech. MUSCULOSKELETAL: There is no tenderness or deformity. There is no evidence of acute injury. ED Course Vital Signs 01/16/19 01/16/19 01/16/19 10:19 10:22 11:16 Temperature 98.3 F 98.3 F Pulse Rate 72 72 Respiratory 18 16 Rate Blood Pressure 133/61 Blood Pressure 133/61 [Left] O2 Sat by Pulse 98 98 Oximetry 01/16/19 01/16/19 01/16/19 12:03 12:16 12:33 Temperature Pulse Rate 59 L Respiratory 18 14 15 Rate Blood Pressure 142/74 Blood Pressure [Left] O2 Sat by Pulse 100 Oximetry 01/16/19 01/16/19 01/16/19 13:00 13:52 14:00 Temperature Pulse Rate 42 L 56 L Respiratory 11 L 18 18 Rate Blood Pressure 154/71 163/75 Blood Pressure [Left] O2 Sat by Pulse 99 100 Oximetry 01/16/19 01/16/19 01/16/19 14:26 15:30 16:46 Temperature Pulse Rate 55 L 75 59 L Respiratory 14 19 15 Rate Blood Pressure 153/67 148/84 148/72 Blood Pressure [Left] O2 Sat by Pulse 100 99 99 Oximetry 01/16/19 01/16/19 01/16/19 17:00 17:10 17:20 Temperature Pulse Rate 58 L 58 L 51 L Respiratory 12 20 11 L Rate Blood Pressure 148/72 133/67 133/67 Blood Pressure [Left] O2 Sat by Pulse 99 99 98 Oximetry 01/16/19 01/16/19 17:30 18:09 Temperature 97.4 F L Pulse Rate 46 L 49 L Respiratory 11 L 18 Rate Blood Pressure 133/67 158/68 Blood Pressure [Left] O2 Sat by Pulse 99 100 Oximetry CHARLEY score - Charley Score Age > 65: (1) Yes Aspirin use within the Past 7 Days: (0) No 3 or more CAD Risk Factors: (0) No 2 or more Angina events in past 24 hrs: (1) Yes Known CAD with more than 50% Stenosis: (0) No Elevated Cardiac Markers: (0) No ST Deviation Greater than 0.5mm: (0) No CHARLEY Score: 2 ED Medical Decision Making - Lab Data Result diagrams: 01/17/19 03:40 01/17/19 03:40 - EKG Data -: EKG Interpreted by Me EKG shows normal: sinus rhythm, axis, intervals, QRS complexes, ST-T waves Rate: normal - EKG Data When compared to previous EKG there are: previous EKG unavailable Interpretation: normal EKG - Radiology Data Radiology results: report reviewed, image reviewed interpreted by me: Chest x-ray does not show any acute process. There are no pleural effusions, obvious pneumonia and there is no pneumothorax. CTA CHEST WITH IV CONTRAST INDICATION: Chest pain. Elevated d-dimer. TECHNIQUE: Axial CT images were obtained through the chest after injection of an unspecified amount and type of IV contrast. 3 plane MIP reconstructions were produced. All CT scans at this location are perfo rmed using CT dose reduction for ALARA by means of automated exposure control. COMPARISON: One view of the chest from earlier today. FINDINGS: PULMONARY ARTERIES: Well-opacified without visualization of thromboemboli. AORTA AND ARTERIES: No acute abnormality. MEDIASTINUM: Unremarkable thyroid gland. The trachea and main bronchi are patent and normal in caliber. No mediastinal mass or lymphadenopathy. Normal cardiac size without a pericardial effusion. LUNGS: No suspicious consolidation, nodule or mass. No pneumothorax or pleural effusion. ADDITIONAL FINDINGS: None. UPPER ABDOMEN: No acute findings. BONES: No significant osseous abnormality. IMPRESSION: 1. No CT evidence for pulmonary embolism. 2. No acute findings. - Medical Decision Making This patient presents to the emergency department with complaint of left-sided chest pain with radiation to the neck and shoulder and back. Labs thus far has been unremarkable including negative troponins 2 but he did have a slightly elevated and equivocal d-dimer. CT angiography of the chest did not show any pulmonary embolism or any other acute findings. His EKG did not show any signs of ST elevation MS. It does not sound like the patient has had any full cardiac workup including any recent stress test. He continues to have some discomfort despite pain medication given. For these reasons, the patient will be admitted to the hospital for further evaluation and has been accepted for admission by the hospitalist, Dr. Stewart. - Differential Diagnosis MS, PE, Costochondritis, Pneumonia Critical Care Time: No Critical care attestation.: If time is entered above; I have spent that time in minutes in the direct care of this critically ill patient, excluding procedure time. ED Disposition Clinical Impression: Acute chest pain, Hyperglycemia Hypertension Qualifiers: Hypertension type: essential hypertension Qualified Code(s): I10 - Essential (primary) hypertension Disposition: OP ADMIT IP TO THIS HOSP Is pt being admited?: Yes Does the pt Need Aspirin: Yes Condition: Stable Time of Disposition: 15:36
[2019-01-16] MEDS ORDERED: MORPHINE IV ONE ×2 (11:40→13:29)
[2019-01-16 11:42] LABS: INR 1.04 (0.87-1.13)
[2019-01-16 11:43] LABS: Partial Thromboplastin Time 24.1 Sec. (24.2-36.6)
--- NOTE | 2019-01-16 11:43 | XRay Report ---
CHEST 1 VIEW INDICATION: Left sided chest pain with radiation to neck for one day. COMPARISON: FINDINGS: Support devices: None. Heart: Within normal limits. Lungs/Pleura: No acute air space or interstitial disease. Additional findings: None. IMPRESSION: 1. No acute findings. Signer Name: Aman Barnett Jr, MD Signed: 01/16/2019 11:39 AM Workstation Name: [id number]
[2019-01-16 12:14] LABS: BUN/Creatinine Ratio 12; Blood Urea Nitrogen 12 mg/dL (9-20); Calcium 9.2 mg/dL (8.4-10.2); Hemolysis Index 8
[2019-01-16] MEDS ORDERED: HumuLIN R IV ONE (12:21)
[2019-01-16] MEDS ORDERED: MORPHINE ONE (13:49)
[2019-01-16] MEDS ORDERED: BABY ASPIRIN PO ONE (15:37)
[2019-01-16] MEDS ORDERED: SODIUM CHLORIDE FLUSH SYRINGE 10 ML IV PRN ×2 (16:11→21:44)
[2019-01-16] MEDS ORDERED: ZOFRAN IV PRN ×2 (16:11→21:44)
[2019-01-16] MEDS ORDERED: TYLENOL PO PRN ×2 (16:11→21:44)
--- NOTE | 2019-01-16 16:20 | History and Physical Report ---
History of Present Illness Date of examination: 01/16/19 Date of admission: 01/16/19 15:37 Chief complaint: Chest pain since last night History of present illness: 68-year-old male from [facility] with pmh of Gerd Hld T2dm and OAB presents to the emergency department with a complaint of left-sided chest pain with radiation towards the neck and back that has been going on intermittently since last night. It is a sharp pain.Pain is about 6 on a scale of 1 to 10. No obvious aggravating or alleviating factors. He denies any shortness of breath, fever, nausea, vomiting or diaphoresis. He has a primary care physician but has not seen them regarding his symptoms. No recent travel or sick contacts at home. He tried some meloxicam and Benadryl for his symptoms late last night without much relief. Past Medical History Diabetes: Yes Kidney Stones: Yes Chronic pain. Elevated cholestrol Surgical History Past Surgical History?: Yes Additional Surgical History: right arm and ear surgery. Social History Smoking Status: Former Smoker Family History Htn Review of Systems ROS: Stated complaint: CHEST PAIN Other details as noted in HPI Comment: All other systems reviewed and negative Constitutional: denies: chills, fever Eyes: denies: eye pain, vision change ENT: denies: ear pain, throat pain Respiratory: denies: cough, shortness of breath Cardiovascular: chest pain. denies: palpitations Gastrointestinal: denies: abdominal pain, vomiting Genitourinary: denies: dysuria, discharge Musculoskeletal: back pain. denies: joint swelling Skin: denies: rash, lesions Neurological: denies: headache, weakness Equals of days has onset Medications and Allergies Allergies Allergy/AdvReac Type Severity Reaction Status Date / Time amoxicillin Allergy Unknown Verified 12/02/18 15:02 Home Medications Medication Instructions Recorded Confirmed Last Taken Type Omeprazole [PriLOSEC] 40 mg PO QDAY 06/17/15 01/16/19 06/16/15 History Atorvastatin Calcium [Lipitor] 20 mg PO QHS 08/12/15 01/16/19 Unknown History Diclofenac Sodium [Voltaren] 1 applic TP BID 08/12/15 01/16/19 Unknown History Ciprofloxacin/Hydrocortisone 4 drop OT Q12HR 01/16/19 01/16/19 Unknown History [Ciprofloxacin HC OTIC] Glimepiride [Amaryl] 4 mg PO BID 01/16/19 01/16/19 Unknown History HYDROcodone/APAP 7.5-325 [[place] 1 each PO Q12HR PRN 01/16/19 01/16/19 Unknown History 7.5/325] Loratadine 10 mg PO QDAY 01/16/19 01/16/19 Unknown History Meloxicam [Mobic] 15 mg PO QAM 01/16/19 01/16/19 Unknown History Olopatadine HCl [Pataday 0.2%] 1 drop OU QDAY 01/16/19 01/16/19 Unknown History Sitagliptin Phosphate [Januvia] 100 mg PO QDAY 01/16/19 01/16/19 Unknown History Solifenacin Succinate [Vesicare] 10 mg PO QDAY 01/16/19 01/16/19 Unknown History Tramadol HCl [traMADol ER 100 MG] 100 mg PO QDAY PRN 01/16/19 01/16/19 Unknown History Exam - Constitutional Vitals: Temp Pulse Resp BP Pulse Ox 98.3 F 75 19 148/84 99 01/16/19 10:22 01/16/19 15:30 01/16/19 15:30 01/16/19 15:30 01/16/19 15:30 General appearance: Present: no acute distress, well-nourished - EENT Eyes: Present: PERRL ENT: hearing intact, clear oral mucosa - Neck Neck: Present: supple, normal ROM - Respiratory Respiratory effort: normal Respiratory: bilateral: CTA - Cardiovascular Heart rate: 78 Rhythm: regular Heart Sounds: Present: S1 & S2. Absent: rub, click - Extremities Extremities: no ischemia, pulses intact, pulses symmetrical, No edema Peripheral Pulses: within normal limits - Abdominal General gastrointestinal: Present: soft, non-tender, non-distended, normal bowel sounds Male genitourinary: Present: normal - Rectal Rectal Exam: deferred - Integumentary Integumentary: Present: clear, warm, dry - Musculoskeletal Musculoskeletal: gait normal, strength equal bilaterally - Psychiatric Psychiatric: appropriate mood/affect, intact judgment & insight - Neurologic Neurologic: CNII-XII intact, moves all extremities - Allied Health Allied health notes reviewed: nursing, case management Results - Labs CBC & Chem 7: 01/17/19 03:40 01/17/19 03:40 Labs: Laboratory Last Values WBC 3.3 K/mm3 (4.5-11.0) L 01/16/19 11:13 RBC 4.40 M/mm3 (3.65-5.03) 01/16/19 11:13 Hgb 12.2 gm/dl (11.8-15.2) 01/16/19 11:13 Hct 37.5 % (35.5-45.6) 01/16/19 11:13 MCV 85 fl (84-94) 01/16/19 11:13 MCH 28 pg (28-32) 01/16/19 11:13 MCHC 33 % (32-34) 01/16/19 11:13 RDW 14.5 % (13.2-15.2) 01/16/19 11:13 Plt Count 239 K/mm3 (140-440) 01/16/19 11:13 Lymph % (Auto) 28.4 % (13.4-35.0) 01/16/19 11:13 [place] % (Auto) 9.9 % (0.0-7.3) H 01/16/19 11:13 Eos % (Auto) 3.6 % (0.0-4.3) 01/16/19 11:13 Baso % (Auto) 1.5 % (0.0-1.8) 01/16/19 11:13 Lymph # 1.0 K/mm3 (1.2-5.4) L 01/16/19 11:13 [place] # 0.3 K/mm3 (0.0-0.8) 01/16/19 11:13 Eos # 0.1 K/mm3 (0.0-0.4) 01/16/19 11:13 Baso # 0.0 K/mm3 (0.0-0.1) 01/16/19 11:13 Seg Neutrophils % 56.6 % (40.0-70.0) 01/16/19 11:13 Seg Neutrophils # 1.9 K/mm3 (1.8-7.7) 01/16/19 11:13 PT 13.3 Sec. (12.2-14.9) 01/16/19 11:13 INR 1.04 (0.87-1.13) 01/16/19 11:13 APTT 24.1 Sec. (24.2-36.6) L 01/16/19 11:13 322.42 ng/mlDDU (0-234) H 01/16/19 11:13 Sodium 138 mmol/L (137-145) 01/16/19 11:13 Potassium 4.4 mmol/L (3.6-5.0) 01/16/19 11:13 Chloride 101.0 mmol/L (98-107) 01/16/19 11:13 Carbon Dioxide 24 mmol/L (22-30) 01/16/19 11:13 17 mmol/L 01/16/19 11:13 BUN 12 mg/dL (9-20) 01/16/19 11:13 1.0 mg/dL (0.8-1.5) 01/16/19 11:13 Estimated GFR > 60 ml/min 01/16/19 11:13 12 % 01/16/19 11:13 Glucose 322 mg/dL (75-100) H 01/16/19 11:13 POC Glucose 243 (70-105) H 01/16/19 12:40 Calcium 9.2 mg/dL (8.4-10.2) 01/16/19 11:13 < 0.010 ng/mL (0.00-0.029) 01/16/19 14:45 Short CBC 01/16/19 01/17/19 Range/Units 11:13 03:40 WBC 3.3 L 3.6 L (4.5-11.0) K/mm3 Hgb 12.2 11.7 L (11.8-15.2) gm/dl Hct 37.5 35.1 L (35.5-45.6) % Plt Count 239 212 (140-440) K/mm3 BMP 01/16/19 01/17/19 11:13 03:40 Sodium 138 139 Potassium 4.4 4.4 Chloride 101.0 100.4 Carbon Dioxide 24 22 BUN 12 19 Creatinine 1.0 1.0 Glucose 322 H 315 H Calcium 9.2 8.7 Cardiac Enzymes 01/16/19 01/16/19 01/16/19 Range/Units 11:13 14:45 17:19 Troponin T < 0.010 < 0.010 < 0.010 (0.00-0.029) ng/mL 07/09/19 07/09/19 Range/Units 00:02 03:40 Troponin T < 0.010 < 0.010 (0.00-0.029) ng/mL Liver Function 01/17/19 Range/Units 03:40 Total Bilirubin 0.20 (0.1-1.2) mg/dL AST 16 (5-40) units/L ALT 14 (7-56) units/L Alkaline Phosphatase 61 (35-129) units/L Albumin 3.9 (3.9-5) g/dL - Imaging and Cardiology EKG: report reviewed Chest x-ray: report reviewed (NAF) CT scan - chest: report reviewed Imaging and Cardiology: EKG Data EKG Interpreted by Me EKG shows normal: sinus rhythm, axis, intervals, QRS complexes, ST-T waves Rate: normal previous EKG unavailable Interpretation: normal EKG CTA chest IMPRESSION:: No CT evidence for pulmonary embolism. 2. No acute findings. Assessment and Plan Advance Directives: Yes (Full code) VTE prophylaxis?: Chemical Plan of care discussed with patient/family: Yes - Patient Problems (1) Acute chest pain Current Visit: Yes Status: Acute Plan to address problem: Chest pain r/o NE protocol Serial troponins Lexiscan in AM (2) Hypertension Current Visit: Yes Status: Acute Qualifiers: Hypertension type: essential hypertension Qualified Code(s): I10 - Essential (primary) hypertension (3) T2DM (type 2 diabetes mellitus) Current Visit: Yes Status: Chronic Qualifiers: Diabetes mellitus emt intermediate insulin use: unspecified emt intermediate insulin use status Plan to address problem: Cont lHypoglycemics and Insulin coverage Check A1c (4) OAB (overactive bladder) Current Visit: Yes Status: Chronic Plan to address problem: Cont vesicare (5) HLD (hyperlipidemia) Current Visit: Yes Status: Chronic Qualifiers: Hyperlipidemia type: mixed hyperlipidemia Qualified Code(s): E78.2 - Mixed hyperlipidemia Plan to address problem: Cont statins (6) Glaucoma Current Visit: Yes Status: Chronic Qualifiers: Glaucoma type: unspecified Plan to address problem: COnt pataday eye gtt (7) GERD (gastroesophageal reflux disease) Current Visit: Yes Status: Chronic Qualifiers: Esophagitis presence: with esophagitis Qualified Code(s): K21.0 - Gastro- esophageal reflux disease with esophagitis Plan to address problem: COnt PPI's (8) DVT prophylaxis Current Visit: Yes Status: Acute Plan to address problem: On Lovenox and GI prophylaxis
--- NOTE | 2019-01-16 17:05 | Cat Scan Report ---
CTA CHEST WITH IV CONTRAST INDICATION: Chest pain. Elevated d-dimer. TECHNIQUE: Axial CT images were obtained through the chest after injection of an unspecified amount and type of IV contrast. 3 plane MIP reconstructions were produced. All CT scans at this location are performed u sing CT dose reduction for ALARA by means of automated exposure control. COMPARISON: One view of the chest from earlier today. FINDINGS: PULMONARY ARTERIES: Well-opacified without visualization of thromboemboli. AORTA AND ARTERIES: No acute abnormality. MEDIASTINUM: Unremarkable thyroid gland. The trachea and main bronchi are patent and normal in calibe r. No mediastinal mass or lymphadenopathy. Normal cardiac size without a pericardial effusion. LUNGS: No suspicious consolidation, nodule or mass. No pneumothorax or pleural effusion. ADDITIONAL FINDINGS: None. UPPER ABDOMEN: No acute findings. BONES: No significant osseous abnormality. IMPRESSION: 1. No CT evidence for pulmonary embolism. 2. No acute findings. Signer Name: Rich Stanley MD Signed: 01/16/2019 5:01 PM Workstation Name: [id number]
[2019-01-16] MEDS ORDERED: TRAMADOL HCL 100 MG PO PRN (21:41)
[2019-01-16] MEDS ORDERED: PERCOCET 5/325 PO PRN (21:44)
[2019-01-16] MEDS ORDERED: REGLAN IV PRN (21:44)
[2019-01-16] MEDS ORDERED: DILAUDID IV PRN (21:44)
[2019-01-16] MEDS ORDERED: SOLIFENACIN SUCCINATE 10 MG PO SCH (21:45)
[2019-01-16] MEDS ORDERED: NON-FORMULARY (Sitagliptin Phosphate [Januvia] 100 MG) PO SCH (21:45)
[2019-01-16] MEDS ORDERED: NON-FORMULARY (Omeprazole [Prilosec] 40 MG) PO SCH (21:45)
[2019-01-16] MEDS ORDERED: OLOPATADINE HCL OU SCH (21:45)
[2019-01-16] MEDS: SODIUM CHLORIDE FLUSH SYRINGE 10 ML IV SCH (21:51)
[2019-01-16] MEDS: PROTONIX PO SCH (21:57)
[2019-01-16] MEDS: CLARITIN PO SCH (21:58)
[2019-01-16] MEDS ORDERED: SODIUM CHLORIDE FLUSH SYRINGE 10 ML IV SCH (22:00)
[2019-01-16] MEDS ORDERED: PEPCID PO SCH (22:00)
[2019-01-16] MEDS: NORCO 7.5/325 PO PRN (22:02)
[2019-01-16] MEDS ORDERED: BENADRYL PO PRN ×2 (23:24→23:54)
[2019-01-16] MEDS ORDERED: BENADRYL PO NR (23:45)
[2019-01-17] MEDS: HumaLOG SUB-Q SCH ×3 (00:23→12:20)
[2019-01-17] MEDS: TRADJENTA PO SCH ×2 (00:34→13:53)
[2019-01-17 04:10] LABS: Basophils % (Auto) 0.2 % (0.0-1.8); Eosinophils # (Auto) 0.2 K/mm3 (0.0-0.4); Eosinophils % (Auto) 4.5 % (0.0-4.3); Hematocrit 35.1 % (35.5-45.6); Hemoglobin 11.7 gm/dl (11.8-15.2); Lymphocytes # (Auto) 1.5 K/mm3 (1.2-5.4); Lymphocytes % (Auto) 42.4 % (13.4-35.0); Mean Corpuscular HGB Conc 33 % (32-34); Mean Corpuscular Volume 85 fl (84-94); Monocytes # (Auto) 0.4 K/mm3 (0.0-0.8); Monocytes % (Auto) 9.8 % (0.0-7.3); Platelet Count 212 K/mm3 (140-440); Red Blood Count 4.16 M/mm3 (3.65-5.03); Red Cell Distribution Width 14.6 % (13.2-15.2)
[2019-01-17 05:39] LABS: Alanine Aminotransferase 14 units/L (7-56); Albumin 3.9 g/dL (3.9-5); BUN/Creatinine Ratio 19; Blood Urea Nitrogen 19 mg/dL (9-20); Calcium 8.7 mg/dL (8.4-10.2); Hemolysis Index 9
[2019-01-17] MEDS ORDERED: LEXISCAN IV ONE (11:28)
[2019-01-17] MEDS: SODIUM CHLORIDE FLUSH SYRINGE 10 ML IV SCH (12:21)
[2019-01-17] MEDS: PROTONIX PO SCH (12:21)
[2019-01-17] MEDS: CLARITIN PO SCH (12:21)
[2019-01-17 12:31] VITALS: BP 131/71
[2019-01-17] MEDS: NORCO 7.5/325 PO PRN (13:53)
--- NOTE | 2019-01-17 14:54 | Discharge Summary ---
Providers - Providers Date of Admission: 01/16/19 15:37 Date of discharge: 01/17/19 Attending physician: BLADIMIR HASSAN [facility] Reason for admission: Atypicai Chest pain Condition: Stable Pertinent studies: CXR CTA chest Stress test Hospital course: 68-year-old male from [facility] with pmh of Gerd Hld T2dm and OAB presents to the emergency department with a complaint of left-sided chest pain with radiation towards the neck and back that has been going on intermittently since last night. It is a sharp pain.Pain is about 6 on a scale of 1 to 10. No obvious aggravating or alleviating factors. He denies any shortness of breath, fever, nausea, vomiting or diaphoresis. He has a primary care physician but has not seen them regarding his symptoms. No recent travel or sick contacts at home. He tried some meloxicam and Benadryl for his symptoms late last night without much relief.Patient was admitted,managed appropriately. Stress test negative for ischemia,CTA chest neg for PE. Patient's Symptoms improved,Chest pain probably noncardiac due to GERD. Today patient stable for discharge Disposition: DC-01 TO HOME OR SELFCARE Time spent for discharge: 31 min - Discharge Diagnoses (1) Atypical chest pain Status: Acute (2) GERD (gastroesophageal reflux disease) Status: Acute Qualifiers: Esophagitis presence: with esophagitis Qualified Code(s): K21.0 - Gastro- esophageal reflux disease with esophagitis (3) Hypertension Status: Chronic Qualifiers: Hypertension type: essential hypertension Qualified Code(s): I10 - Essential (primary) hypertension (4) HLD (hyperlipidemia) Status: Chronic Qualifiers: Hyperlipidemia type: mixed hyperlipidemia Qualified Code(s): E78.2 - Mixed hyperlipidemia (5) T2DM (type 2 diabetes mellitus) Status: Chronic Qualifiers: Diabetes mellitus usp insulin use: unspecified usp insulin use status Core Measure Documentation - Palliative Care Palliative Care/ Comfort Measures: Not Applicable - Core Measures Any of the following diagnoses?: none Exam - Constitutional Vitals: Temp Pulse Resp BP Pulse Ox 97.5 F L 53 L 18 131/71 97 01/17/19 07:51 01/17/19 05:15 01/17/19 11:35 01/17/19 12:03 01/17/19 04:00 General appearance: Present: no acute distress, well-nourished - EENT Eyes: Present: PERRL, EOM intact - Neck Neck: Present: supple, normal ROM - Respiratory Respiratory effort: normal Respiratory: bilateral: diminished, negative: rales, rhonchi, wheezing - Cardiovascular Rhythm: regular Heart Sounds: Present: S1 & S2 - Extremities Extremities: no ischemia, No edema - Abdominal General gastrointestinal: Present: soft, tender, non-distended, normal bowel sounds - Integumentary Integumentary: Present: clear, warm - Musculoskeletal Musculoskeletal: strength equal bilaterally - Psychiatric Psychiatric: appropriate mood/affect, cooperative - Neurologic Neurologic: CNII-XII intact, moves all extremities Plan Activity: advance as tolerated Diet: diabetic Additional Instructions: If you have recurrent chest pain at the emergency room. You may need to see general manager oracle data cloud as outpatient if needed Follow up with: GABRIELLA LIUFENNVILLE MD AMRIT [Primary Care Provider] - 3-5 Days HILARIO SIMPSON MD [Staff Physician] - 7 Days Prescriptions: Famotidine [Pepcid] 20 mg PO BID #20 tablet
[2019-01-17] MEDS ORDERED: BENADRYL PO ONE (23:54)
--- NOTE | 2019-01-18 00:26 | Treadmill Report ---
THALLIUM STRESS TEST LEFT VENTRICLE: Left ventricular chamber size at the upper limits of normal. Perfusion study demonstrates a small basal inferior defect, no significant reversibility on the resting study. Gated analysis demonstrates left ventricular systolic function at the lower limits of normal, ejection fraction 51%. CONCLUSION: Small basal inferior defect appears consistent with diaphragmatic attenuation artifact, otherwise homogeneous uptake of the tracer in all segments. No significant ischemia demonstrated. Clinical correlation is recommended. [facility]# [id number] CA/NTS
== END 2019-01-17 16:30 | disposition home or self-care (01) ==
LOC: ED 10:11 → 4A 15:37
PROVIDERS: ADMIT Internal Medicine; ATTEND Internal Medicine
DX: R07.89 Other chest pain (principal); I10 Essential (primary) hypertension; N32.0 Bladder-neck obstruction; E78.5 Hyperlipidemia, unspecified; H40.9 Unspecified glaucoma; K21.9 Gastro-esophageal reflux disease without esophagitis; G89.29 Other chronic pain; E78.00 Pure hypercholesterolemia, unspecified; E11.65 Type 2 diabetes mellitus with hyperglycemia; Z87.891 Personal history of nicotine dependence; Z85.528 Personal history of other malignant neoplasm of kidney; Z98.890 Other specified postprocedural states
CPT/HCPCS: 36415; 71045; 71275; 78452; 80048; 80053; 82962; 83036; 84484; 85025; 85379; 85610; 85730; 93005; 93010; 93017; 96374; 96376; 99284; A9270; A9502; G0378; J2270; J2785; Q9967; J1815

== ENCOUNTER 2019-03-20 08:27 | Emergency (ER) | payer MEDICARE ==
[2019-03-20 09:30] LABS: Basophils # (Auto) 0.1 K/mm3 (0.0-0.1); Basophils % (Auto) 0.5 % (0.0-1.8); Eosinophils % (Auto) 0.2 % (0.0-4.3); Hematocrit 27.9 % (35.5-45.6); Hemoglobin 9.1 gm/dl (11.8-15.2); Lymphocytes # (Auto) 0.3 K/mm3 (1.2-5.4); Lymphocytes % (Auto) 2.8 % (13.4-35.0); Mean Corpuscular HGB Conc 33 % (32-34); Mean Corpuscular Volume 85 fl (84-94); Monocytes # (Auto) 0.8 K/mm3 (0.0-0.8); Platelet Count 440 K/mm3 (140-440); Red Blood Count 3.29 M/mm3 (3.65-5.03); Red Cell Distribution Width 14.7 % (13.2-15.2)
[2019-03-20 09:33] LABS: Albumin 3.5 g/dL (3.9-5); Calcium 9.3 mg/dL (8.4-10.2)
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
[2019-03-20] MEDS ORDERED: MORPHINE IV ONE (09:48)
[2019-03-20] MEDS ORDERED: NACL 0.9% 1000 ML 1,000 ML IV ONE (09:48)
[2019-03-20] MEDS ORDERED: ZOFRAN IV ONE (09:48)
[2019-03-20] MEDS ORDERED: HumuLIN R IV ONE (13:20)
--- NOTE | 2019-03-20 15:25 | Cat Scan Report ---
CT NECK WITH CONTRAST INDICATION : difficulty breathing, status post neck surgery. TECHNIQUE: Axial imaging performed from the aortic arch to the skull base following 100 cc of Omnipa que 300. Sagittal and coronal reformatted images. All CT scans at this location are performed using CT dose reduction for ALARA by means of automated exposure control. COMPARISON: None FINDINGS: Anterior cervical fusion changes from C3-T1 generates artifact which limits this exam. Disc spacers are noted at C4-5 and C5-6. There appears to be a bone graft overlying C7 and T1 with its juarez perior edge tilted slightly posteriorly. Please correlate with the images. The parapharyngeal and prevertebral soft tissues are within normal limits. There is no evidence for s ignificant swelling, abscess or large hematoma. Structures of the upper aerodigestive tract appear pa tent. The epiglottis, vallecula and piriform sinuses are well defined. The vascular structures are widely patent. Soft tissue structures of the neck are within normal limit s. Normal thyroid gland. The upper trachea appears widely patent. IMPRESSION: Surgical changes in the lower cervical region as described. No evidence for fluid collect ion or mass. Signer Name: Aman Barnett Jr, MD Signed: 03/20/2019 3:20 PM Workstation Name: [id number]
--- NOTE | 2019-03-20 19:38 | Cat Scan Report ---
CT abdomen pelvis wo con INDICATION: abdominal pain. TECHNIQUE: All CT scans at this location are performed using the following dose modulation technique: Automated exposure control. CONTRAST: None. COMPARISON: 04/21/2018. CT ABDOMEN: Evaluation of the parenchymal organs demonstrates residual patchy enhancement of both kid neys. A small amount of contrast material is seen within the collecting systems. The remaining parenc hymal organs are unremarkable. Negative for abdominal mass, fluid or inflammation. Colonic stool is moderate. The aorta contains mild atherosclerotic calcification. A fat-containing umbilical hernia is small. CT PELVIS: The appendix is normal. Negative for mass, fluid or inflammation. The bladder contains res idual contrast material. The prostate gland is mildly enlarged and contains calcification. A normal appendix is identified. IMPRESSION: 1. Negative for obstruction or localized inflammation. 2. Residual heterogeneous enhancement at the kidneys likely representing early onset ATN. 3. Moderate colonic stool. Signer Name: Ba Simpson MD Signed: 03/20/2019 7:34 PM Workstation Name: [id number]
[2019-03-20] MEDS ORDERED: FLEET PR ONE (20:36)
[2019-03-20 20:51] VITALS: BP 115/69
== END 2019-03-20 20:51 | disposition home or self-care (01) ==
LOC: ED 08:27
DX: M54.2 Cervicalgia (principal); K59.00 Constipation, unspecified; Z88.1 Allergy status to other antibiotic agents; Z79.899 Other long term (current) drug therapy
CPT/HCPCS: 36415; 70491; 74176; 74177; 80053; 82962; 85025; 96374; 96375; 99284; J2270; J2405; J7030; Q9967; J1815

== ENCOUNTER 2020-03-04 14:42 | Outpatient (CLI) | payer MEDICARE ==
--- NOTE | 2020-03-04 16:10 | Cat Scan Report ---
CT abdomen pelvis wo con INDICATION: HEMATURIA. COMPARISON: 03/20/2019 TECHNIQUE: Abdominal and pelvic CT exam performed. All CT scans at this location are performed using CT dose reduction for ALARA by means of automated exposure control. FINDINGS: CT ABDOMEN and PELVIS: Lung Bases: No significant abnormality. Liver: No significant abnormality. Biliary: No significant abnormality. Spleen: No significant abnormality. Pancreas: No significant abnormality. Adrenals: No significant abnormality. Kidneys: There are a couple nonobstructing renal stones present within the right upper pole and left lower pole. No hydronephrosis. No intraureteral stones. Lymphatics: No lymphadenopathy. Vasculature: Atherosclerotic but nonaneurysmal abdominal aorta. Bowel/Peritoneum: Diverticulosis without colonic wall thickening or pericolonic stranding. Normal marcelino endix. Pelvis: No significant abnormality. Osseous Structures: No aggressive osseous lesion. Benign-appearing lucencies in the right iliac bone. Heterogeneity of the visualized left scapula likely related to a remote fracture Additional Findings: None IMPRESSION: 1. There are a couple of bilateral nonobstructing tiny renal stones. No intraureteral stones or hydro nephrosis. No significant abnormality of the bladder. Signer Name: Bal Domínguez MD Signed: 03/04/2020 4:05 PM Workstation Name: [id number]
== END 2020-03-04 14:43 | disposition home or self-care (01) ==
LOC: CT 14:42
PROVIDERS: ATTEND Urology
DX: N20.0 Calculus of kidney (principal); K57.31 Diverticulosis of large intestine without perforation or abscess with bleeding; I70.0 Atherosclerosis of aorta; R31.9 Hematuria, unspecified
CPT/HCPCS: 74176